=== PATIENT | female | born 1960 | race Caucasian/White ===

== ENCOUNTER 2019-02-14 10:08 | Day surgery (SDC) | payer OTHER, SELFPAY ==
--- NOTE | 2019-02-13 15:42 | PCM.HP.BLA ---
History and Physical Date of Admission: 02/14/19 Pre-Op History and Physical ? HPI: The patient is a 58 year old female presenting for pre-operative visit. She is scheduled for?hysteroscopy dilation and currettage and possible polypectomy, for?abnormal uterine bleeding and endometrial polyp on?02/14/19. ??Procedure discussed along with risks, benefits and complications. ?Other alternatives discussed for management. Consent form signed??Yes.? PAST?MEDICAL?HISTORY PAST MEDICAL HISTORY Diagnosis Date ? Abnormal uterine bleeding (AUB) ? ? Dysplasia of cervix 1987 ? Hypertension ? ? ? PAST?SURGICAL?HISTORY PAST SURGICAL HISTORY Procedure Laterality Date ? SECTION HX ? 1989,1991,1994 ? CONIZATION CERVIX LOOP ELEC ? 1987 ? TONSILLECTOMY AND ADENOIDECTOMY HX ? 1965 ? TUBAL LIGATION, ? 1994 ? ? CURRENT?MEDICATIONS Current Outpatient Medications Medication Sig Dispense Refill ? pravastatin (PRAVACHOL) 40 mg tablet ? lisinopril-hydrochlorothiazide (PRINZIDE, ZESTORETIC) 20-25 mg per tablet Take 1 tablet by mouth. ? ? ? ondansetron (ZOFRAN) 4 mg tablet Take 1 tablet by mouth every 8 hours as needed. 10 tablet 1 ? clarithromycin (BIAXIN) 500 mg tab Take 500 mg by mouth every 12 hours. ? 0 ? No current facility-administered medications for this visit.? ? ALLERGIES:?Penicillins ? PERSONAL HISTORY:? SOCIAL?HISTORY Social History ??Socioeconomic History ?Marital status: ?Spouse name: Not on file ?Number of children: Not on file ?Years of education: Not on file ?Highest education level: Not on file ??Occupational History ?Not on file ??Social Needs ?Financial resource strain: Not on file ?Food insecurity: ?Worry: Not on file ?Inability: Not on file ?Transportation needs: ?Medical: Not on file ?Non-medical: Not on file ??Tobacco Use ?Smoking status: Former Smoker ?Smokeless tobacco: Never Used ??Substance and Sexual Activity ?Alcohol use: Yes ?Comment: seldem ?Drug use: Never ?Sexual activity: Not on file ??Lifestyle ?Physical activity: ?Days per week: Not on file ?Minutes per session: Not on file ?Stress: Not on file ??Relationships ?Social connections: ?Talks on phone: Not on file ?Gets together: Not on file ?Attends restorationism service: Not on file ?Active member of club or organization: Not on file ?Attends meetings of clubs or organizations: Not on file ?Relationship status: Not on file ?Intimate partner violence: ?Fear of current or ex partner: Not on file ?Emotionally abused: Not on file ?Physically abused: Not on file ?Forced sexual activity: Not on file ??Other Topics ?Concerns: ?Not on file ??Social History Narrative ?Not on file ? FAMILY HISTORY:? FAMILY?HISTORY FAMILY HISTORY Problem Relation Age of Onset ? Breast Cancer Mother 62 ? other (Other) Father ?CRISTIAN- ? Hypertension Brother ? ? Heart Attack Brother 59 ? Hypertension Sister ? ? Hypertension Sister ? ? REVIEW OF SYMPTOMS: GENERAL: denies fevers or chills ENDOCRINOLOGY: has not been on steroids Cardiology : denies palpitations or chest pain Respiratory: denies SOB or cough Hematology: denies history of prolonged bleeding or easy bruising or VTE Allergy: Denies history of personal or family history of allergy to anesthesia ? ? PHYSICAL EXAMINATION: ? VITALS:?Blood pressure 138/84, weight 227 lb (103 kg), last menstrual period 12/07/2018. ? GENERAL:??The patient is well nourished, well hydrated in no acute distress. ?The patient is oriented to time, place, and person. NECK:?Supple. No lynphadenopathy, normal thyroid, no thyromegaly. LUNGS:?Clear to auscultation bilaterally. no wheezes, rhonchi or rales HEART:?Regular rate and rhythm, Normal heart sounds and No murmurs or gallops ? IMPRESSION:?AUB, endometrial polyp ? PLAN:???The risks/benefits/alternatives and personal involved for the planned?hysteroscopy with dilation and curettage and possible polyp resection?were reviewed with the patient. Her questions were answered to her satisfaction and she desires to proceed. ?Consent was signed. ?I reviewed with her postop instructions and expectations this history and physical was performed in my office on January 24, 2019.
[2019-02-14 10:27] VITALS: BP 150/96; PULSE 100; RESP 16; TEMP 36.3; O2SAT 97; BMI 34.2
[2019-02-14 10:35] LABS: Mean Corp Hgb Conc 34.1 g/dL (32-36); Mean Corpuscular Hgb 28.3 pg (27.0-32.0); Mean Corpuscular Volume 82.8 fL (81-99); Mean Platelet Vol. 9.4 fl (6.2-12.0); Platelet Count 294 K/mm3 (150-450); RBC Distribution Width CV 12.7 % (11.6-14.6); RBC Distribution Width SD 38.1 fl (35.1-43.9); Red Blood Count 4.95 M/mm3 (4.2-5.4); White Blood Count 6.9 K/mm3 (4.4-11.0)
[2019-02-14 10:47] LABS: Anion Gap 10 (5-15); BUN 22 mg/dL (7-18); BUN/Creat Ratio 22.9 RATIO (10-20); Calcium,Total 9.8 mg/dL (8.5-10.1); Chloride 104 mmol/L (98-107); Creatinine, Serum 0.96 mg/dL (0.55-1.02); EST Glomerular Filtration Rate 64 mL/min (>60); Est Glom Filt Rate - Afr Amer 77 mL/min (>60); Estimated Creatinine Clearance 65.22 ml/min; Glucose 100 mg/dL (74-106); Potassium 4.1 mmol/L (3.5-5.1); Sodium Level 138 mmol/L (136-145)
[2019-02-14] MEDS: Lactated Ringers 1,000 ML 100 ML IV (10:53)
[2019-02-14] MEDS: Ketorolac 30 MG/ML Syringe IV (10:54)
--- NOTE | 2019-02-14 11:45 | EMB_PTH ---
PATIENT: BERTHA HAYS [place] [facility] [id number] AGE/SX: 58/F ROOM: RE02/14/[address]: Dr. Yvrose Louise MD : 1960 BED: DIS: 02/14/2019 SPEC #: [id number] RECD: 02/14/19 15:41 STATUS: EMELY REMartina #: [id number] CALI: 02/14/19 11:[address]: Yvrose Louise DEPT: SURGICAL PATHOLOGY RECD BY: Marcial Mota ENTERED: 02/15/19 09:06 SP TYPE: ENDOM BX/C OTHR DR: Dr. Jada Lazaro, DO Tissues: Endometrium, NOS Procedures: Surgery Specimen Level IV HEADER OPERATION: Hysteroscopy, D & C with polyp resection Symphion PRE-OP DIAGNOSIS: Abnormal uterine bleeding, endometrial polyp TISSUE SUBMITTED: Endometrial curettings MICROSCOPIC DIAGNOSIS Endometrium, curettings: Weakly proliferative endometrium with rare cystic change. See comment. AM:yesi 02/18/19 COMMENT Superficial adenomyosis cannot be ruled out. Clinical correlation is suggested. MICROSCOPIC DESCRIPTION Slides are reviewed. GROSS DESCRIPTION Received in fixative is one container labeled with the patient's name and designated endometrial curettings. The specimen consists of multiple irregular fragments of gatica soft tissue that in aggregate measure 3 x 2.5 x 0.3 cm. The entire specimen is submitted in one cassette. / SJ:yesi 02/15/19 TC:5 CPT: 40373
[2019-02-14] MEDS: Lubricating Jelly 60 GM Tube 30 GM TOPICAL (12:40)
--- NOTE | 2019-02-14 12:53 | PCM.OPRPT ---
Report of Operation Date of Procedure: 02/14/19 Pre-Operative Diagnosis: PMB, endometrial polyp Post-Operative Diagnosis: none Surgery/Procedure Performed:: Hysteroscopy D&C with Symphion resectoscope, resection of endometrial polyp Description of Surgical Findings:: atrophic endometrium, small endometrial polyp in the fundus that was pedunculated, normal-appearing cervix and vagina ceo & board director: fitz ram Type of Anesthesia:: MAC/Supplemental/Local Special Medications: none Specimen's removed: Endometrial curettings Drains: None Estimated Blood Loss (mL): 10 Fluids Replaced: 1400 Description of Procedure: The patient was taken to the OR where she was prepped and draped in dorsal lithotomy position. The weighted speculum was placed in the vagina and the anterior lip of the cervix was grasped with a single-tooth tenaculum. A paracervical block was administered with 1% lidocaine with 1-100,000 epinephrine solution. The cervix was dilated serially with Hegar dilators. The Symphion hysteroscope was placed into the uterine cavity and the above findings were noted. Bilateral tubal ostia were identified. Suction device was readied and inserted through the hysteroscope. A resection of the polyp was done and then a visual D&C was done of the entire endometrial cavity. The instruments were removed from the vagina. The specimen was handed off and sent to pathology. All sponge and needle counts were correct. Vaginal sweep was performed by me. The patient was awakened and taken to the recovery room in stable condition. Hysteroscopic fluid deficit: 350 cc of normal saline calculated by LIQUITY fluid collection system Findings: Endometrial cavity: Atrophic, small polyp in the fundus Cervix: Normal Vagina: Normal Grafts/Implants Used: none - Complications none - Admit VTE Documentation VTE Present on Admission: No VTE Mechan Device Prophylaxis: SCD's VTE Pharm Prophylaxis ordered?: No Reason prophylaxis not ordered:: Procedure Not Indicated
--- NOTE | 2019-02-14 12:58 | DCINST_ITS ---
Discharge Diet: No Restrictions Discharge Activity: Return to Normal Activity, May Shower, May Take a Tub Bath - in 2 weeks. May shower in (days): 1 May resume sexual activity in: 2 weeks Call your doctor if your incision/area has: Continuous Slow Oozing, Foul S melling Discharge Call your doctor if you observe: Fever of 101 or Higher, Using more than one pad per hour - for 2 hrs in a row Allergies/Adverse Reactions: Allergies Penicillins Allergy (Verified 02/14/19 10:21) Unknown Medications to take at Discharge Lisinopril/Hydrochlorothiazide [Lisinopril-Hctz 20-25 mg Tab] 1 ea PO DAILY 02/13/19 Pravastatin Sodium 40 mg PO DAILY 02/13/19 Primary Care Physician: Jada Lazaro DO [Primary Care Provider] - Test Results: Test results from this visit will be discussed in further detail at your follow- up appointment, if applicable. Please Follow Up With: Yvrose Louise MD - [phone] When: We will call you with the pathology. Follow up in the office as needed
[2019-02-14 13:00] VITALS: BP 119/76; BP 150/96; PULSE 88; RESP 16; TEMP 36.3; O2SAT 97
[2019-02-14 13:05] VITALS: BP 125/70; BP 150/96; PULSE 88; RESP 16; O2SAT 97
[2019-02-14 13:10] VITALS: BP 125/80; BP 150/96; PULSE 89; RESP 16; O2SAT 95
[2019-02-14 13:15] VITALS: BP 110/70; BP 150/96; PULSE 90; RESP 16; TEMP 36.3; O2SAT 98
[2019-02-14 13:53] VITALS: BP 150/96
== END 2019-02-14 13:57 | disposition home or self-care (01) ==
LOC: SDC 10:12 → AC 10:29
PROVIDERS: Family Provider Internal Medicine; PCP Internal Medicine; Referring Provider Obstetrics & Gynecology; Visit Provider Obstetrics & Gynecology
PROC: 0UB98ZZ Excision of Uterus, Via Natural or Artificial Opening Endoscopic (ICD-10-PCS; CPT 58558; principal; 2019-02-14 11:30)
DX: N84.0 Polyp of corpus uteri (principal); I10 Essential (primary) hypertension; E78.00 Pure hypercholesterolemia, unspecified; Z79.899 Other long term (current) drug therapy; Z87.891 Personal history of nicotine dependence
CPT/HCPCS: 00952; 58558; 36415; 80048; 85027; 88305; J7120; J2405